=== PATIENT | male | born 1980 ===

== ENCOUNTER 2017-12-30 08:48 | Emergency (ER) | payer OTHER ==
[2017-12-30 08:52] VITALS: BMI 29.1
[2017-12-30 09:49] LABS: HEMOGLOBIN 16.1 g/dL (12.0-18.0); MEAN CORPUSCULAR HEMOGLOBIN 28.9 pg (27.0-31.0); MEAN CORPUSCULAR HGB CONC 33.6 g/dL (33.0-37.0); RBC 5.56 Mil/uL (4.40-5.90); RED CELL DISTRIBUTION WIDTH 13.2 % (11.5-14.5); WHITE BLOOD COUNT 4.5 K/uL (4.8-10.8)
[2017-12-30 09:52] LABS: URINE BILIRUBIN NEGATIVE (NEGATIVE); URINE BLOOD NEGATIVE (NEGATIVE); URINE CLARITY CLEAR (Clear); URINE COLOR YELLOW (YELLOW); URINE GLUCOSE (UA) NEG (Normal); URINE LEUKOCYTE ESTERASE NEG Leu/uL (Negative); URINE PROTEIN NEGATIVE (NEGATIVE); URINE UROBILINOGEN 0.2-1.0 mg/dL (0.2-1.0)
[2017-12-30 09:57] LABS: BLOOD UREA NITROGEN 14 mg/dl (9-20); CALCIUM 9.2 mg/dL (8.4-10.2); GFR NON-AFRICAN AMERICAN > 60
--- NOTE | 2017-12-30 09:59 | ED PDOC ---
HPI: Back Chief Complaint (Nursing): Back Pain Additional Complaint(s): Pt seen and examined at bedside with attending. 37M no PMH/PSH p/w with localized, sharp pain at RIGHT paraspinal without radiation into buttocks/legs for 4 days. Denies any preceding traumatic event, denies fevers, chills, pain/burning/frequency of urination and denies numbness/tingling/weakness into either lower extremity. He has had some mild nausea and endorses a "kidney stone" 3 yrs ago, but this feels a "little different". Past Medical History Vital Signs: Last Vital Signs Temp 36.6 C 12/30/17 08:52 Pulse 84 12/30/17 08:52 Resp 16 12/30/17 08:52 BP 118/76 12/30/17 08:52 Pulse Ox 97 12/30/17 08:52 - Family History Family History: States: Unknown Family Hx - Home Medications Home Medications: Ambulatory Orders Medication Instructions Recorded Naproxen [Naprosyn] 500 mg PO BID PRN #14 tablet 12/30/17 - Allergies Allergies/Adverse Reactions: Allergies Allergy/AdvReac Type Severity Reaction Status Date / Time No Known Allergies Allergy Verified 12/30/17 09:05 Review of Systems ROS Statement: Except As Marked, All Systems Reviewed And Found Negative Gastrointestinal: Positive for: Nausea Musculoskeletal: Positive for: Back Pain (RIGHT sided) Physical Exam - Reviewed Vital Signs Reviewed: Yes - Physical Exam Appears: Positive for: Well, Non-toxic, No Acute Distress Head Exam: Positive for: ATRAUMATIC, NORMAL INSPECTION Skin: Positive for: Normal Color, Warm, Dry Eye Exam: Positive for: Normal appearance, EOMI ENT: Positive for: Normal ENT Inspection Neck: Positive for: Supple Cardiovascular/Chest: Positive for: Regular Rate, Rhythm Respiratory: Positive for: Normal Breath Sounds. Negative for: Rales, Rhonchi, Wheezing Gastrointestinal/Abdominal: Positive for: Normal Exam, Bowel Sounds, Soft. Negative for: Tenderness Back: Positive for: Normal Inspection, Other (Flexion, extension at waist without limitations; straight leg b/l negative). Negative for: L CVA Tenderness, R CVA Tenderness, Vertebral Tenderness, Muscle Spasm Extremity: Positive for: Normal ROM Neurologic/Psych: Positive for: Alert, Oriented, Motor/Sensory Deficits (intact; strength 5/5 bilaterally), Gait (WNL) - Laboratory Results Result Diagrams: 12/30/17 09:25 12/30/17 09:25 - ECG O2 Sat by Pulse Oximetry: 97 - Progress ED Course And Treament: Plain CT non-obstructing nephrolithiasis as per radiology. Re-evaluation Time: 11:00 Condition: Improving,but remains with symptoms Medical Decision Making Medical Decision Making: Muscle Spasm vs. non-obstructing renal stone - Urine dip - CBC, BMP - CT abd/pelvis w/o PO/IV contrast - Toradol 15mg - Re-eval 1000 - CBC, BMP grossly nml - U dip: neg blood/LE/nitrates 1100 CT: non-obstructing nephrolithiasis as per radiology. Disposition - Clinical Impression Clinical Impression: Back pain, Acute low back pain - Patient ED Disposition Is Patient to be Admitted: No - Disposition Referrals: [facility] [Outside] Disposition: Routine/Home Disposition Time: 11:13 Condition: GOOD Additional Instructions: Followup with clinic as directed, use naprosyn for pain as needed and directed. - Increase hydration, decrease coffee/soda consumption Prescriptions: Naproxen [Naprosyn] 500 mg PO BID PRN #14 tablet PRN Reason: Pain, Moderate (4-7) Forms: [employer] ([place])
[2017-12-30] MEDS ORDERED: Lidocaine 5% Patch TD SCH (10:15)
--- NOTE | 2017-12-30 11:04 | CT ---
Date of service: 12/30/2017 PROCEDURE: CT Abdomen and Pelvis without intravenous contrast HISTORY: RIGHT flank pain COMPARISON: Comparison is made to the previous study dated 03/25/2013 TECHNIQUE: Axial and reformatted coronal and sagittal CT images of the abdomen and pelvis were obtained without IV or oral contrast administration.. Contrast dose: 0 Radiation dose: Total exam DLP = 471.17 mGy-cm. This CT exam was performed using one or more of the following dose reduction techniques: Automated exposure control, adjustment of the mA and/or kV according to patient size, and/or use of iterative reconstruction technique. FINDINGS: LOWER THORAX: No evidence of acute pathology at the lung bases. LIVER: Unremarkable. No gross lesion or ductal dilatation. GALLBLADDER AND BILE DUCTS: Unremarkable. PANCREAS: Unremarkable. No gross lesion or ductal dilatation. SPLEEN: Unremarkable. ADRENALS: Unremarkable. No mass. KIDNEYS AND URETERS: There are bilateral nonobstructing renal calculi. The largest calculus in the right kidney measures 4.5 millimeter. The largest calculus in the right kidney seen at the upper pole measures 5 millimeter. No evidence of hydronephrosis or hydroureter. Again noted is 1.3 centimeter low-attenuation lesion exophytic from the mid to lower pole of the left kidney may represent hemorrhagic cyst. VASCULATURE: Unremarkable. No aortic aneurysm. No aortic atherosclerotic calcification or mural plaque present. BOWEL: Unremarkable. No obstruction. No gross mural thickening. APPENDIX: Unremarkable. Normal appendix. PERITONEUM: Unremarkable. No free fluid. No free air. LYMPH NODES: Unremarkable. No enlarged lymph nodes. BLADDER: Mild you're wall thickening is noted. REPRODUCTIVE: Are mildly enlarged. BONES: No acute fracture. OTHER FINDINGS: None. IMPRESSION: Bilateral nonobstructing renal calculi. No evidence of hydronephrosis or hydroureter. Possible hemorrhagic cyst in the left kidney measures 1.3 centimeter. Mild urinary bladder wall thickening.
[2017-12-30] MEDS ORDERED: Lidocaine 5% Patch TD ONE (11:25)
[2017-12-30 12:14] VITALS: BP 112/68; PULSE 72; RESP 18; TEMP 98.3; O2SAT 100
== END 2017-12-30 12:12 | disposition home or self-care (01) ==
LOC: H.ER 08:48 → EDBD 08:48 → H.ER 12:12
DX: M54.5 Low back pain (principal); Z87.442 Personal history of urinary calculi; N20.0 Calculus of kidney
CPT/HCPCS: 74176; 80048; 81003; 85027; 96372; 99283; J1885